=== PATIENT | female | born 1950 ===

== ENCOUNTER 2018-11-08 14:41 | Outpatient (CLI) | payer OTHER ==
[~2018-11-08 14:41] MED LIST: ASA81 MG PO
== END 2018-11-08 14:44 | disposition home or self-care (01) ==
LOC: RAD 14:41
DX: I10 Essential (primary) hypertension (principal)

== ENCOUNTER 2021-08-16 18:16 | Emergency (ER) | payer OTHER ==
[~2021-08-16] VITALS: Ht 157.5 cm; Wt 83.9 kg
[2021-08-16] MEDS ORDERED: SYNTHROID175 MCG PO (18:31)
[2021-08-16] MEDS ORDERED: ECOTRIN81 MG PO (18:32)
[2021-08-16] MEDS ORDERED: NORFLEX100MG PO (21:33)
[2021-08-16] MEDS ORDERED: KETO10TA2 PO (21:33)
== END 2021-08-16 21:54 | disposition home or self-care (01) ==
LOC: ER 18:16
DX: S00.83XA Contusion of other part of head, initial encounter (principal); S80.02XA Contusion of left knee, initial encounter; S80.01XA Contusion of right knee, initial encounter; W18.2XXA Fall in (into) shower or empty bathtub, initial encounter; Y92.012 Bathroom of single-family (private) house as the place of occurrence of the external cause; S60.212A Contusion of left wrist, initial encounter; E03.9 Hypothyroidism, unspecified; Z79.82 Long term (current) use of aspirin

== ENCOUNTER 2021-08-20 13:35 | Outpatient (CLI) | payer OTHER ==
[~2021-08-20 13:35] MED LIST changes: +ECOTRIN81 MG PO; +KETO10TA2 PO; +NORFLEX100MG PO; +SYNTHROID175 MCG PO
== END 2021-08-20 13:48 | disposition home or self-care (01) ==
LOC: RAD 13:35
PROVIDERS: ATTEND Specialist
DX: M48.54XA Collapsed vertebra, not elsewhere classified, thoracic region, initial encounter for fracture (principal)

== ENCOUNTER 2021-09-27 12:26 | Outpatient (CLI) | payer OTHER | END 2021-09-27 12:32 | disposition home or self-care (01) | LOC: RAD 12:26 | DX: I10 Essential (primary) hypertension (principal) ==

== ENCOUNTER 2021-09-28 10:22 | Outpatient (CLI) | payer OTHER | END 2021-09-28 10:40 | disposition home or self-care (01) | LOC: SONOGRAMA 10:22 | DX: K76.0 Fatty (change of) liver, not elsewhere classified (principal) ==